=== PATIENT | female | born 1985 | race Caucasian/White ===

== ENCOUNTER 2023-05-19 15:40 | Emergency (ER) | payer OTHER, SELFPAY ==
--- NOTE | ~2023-05-19 | XR_ITS ---
EXAMINATION: XR chest 2V DATE: 05/19/2023 16:09 INDICATION: Right anterior chest pain. Cough, shortness of breath, and asthma. TECHNIQUE: Frontal and lateral views of the chest were obtained. COMPARISON: None. FINDINGS: There is no pneumonia, pleural effusion, or pneumothorax. The heart size is normal. There i s mild chronic height loss of multiple midthoracic vertebral bodies. IMPRESSION: 1. No acute cardiopulmonary disease. Reviewed, dictated and finalized at location E. GENCY MANAGEMENT SYSTEM DIRECTOR
[2023-05-19 15:44] VITALS: BP 148/82; PULSE 107; RESP 24; TEMP 37.6; O2SAT 99
--- NOTE | 2023-05-19 15:44 | ECG_ITS ---
Measurements Intervals [place] Rate: 97 P: 67 NC: 153 QRS: 28 QRSD: 81 T: 53 QT: 312 QTc: 398 Interpretive Statements SINUS RHYTHM BASELINE ARTIFACT- I, II, III, AVR, AVL, AVF, V1, V3-V6 NORMAL ECG NO PREVIOUS ECG AVAILABLE FOR COMPARISON Electronically Signed On 05-19-2023 16:19:49 INPATIENT SERVICES DIRECTOR by Ahmet Das D.O.
--- NOTE | 2023-05-19 15:55 | ED.URI ---
HPI - URI/Sore Throat General Chief Complaint: Upper Respiratory Infection Stated Complaint: chest pains/sob Time Seen by Provider: 05/19/23 15:55 Source: patient Mode of arrival: ambulatory Limitations: no limitations History of Present Illness HPI Narrative: 38 y/o female presented for c/o chest pain and shortness of breath, onset today. Endorses right chest pain radiating to back, occurs with coughing. Cough is occasionally productive. States she sat in [place] [facility] for most of today, had several tests, but left before she got the results because she thought a fight was breaking out in the waiting room. Related Data Home Medications Medication Instructions Recorded Confirmed Nexplanon 05/19/23 albuterol sulfate 90 mcg/actuation inhalation 05/19/23 aerosol inhaler amitriptyline 25 mg tablet mg 05/19/23 aripiprazole 5 mg tablet mg 05/19/23 atogepant 30 mg tablet (Qulipta) mg 05/19/23 atorvastatin 40 mg tablet mg 05/19/23 brivaracetam 100 mg tablet mg PO 05/19/23 (Briviact) buspirone 15 mg tablet mg 05/19/23 famotidine 20 mg tablet mg 05/19/23 hydroxyzine HCl 25 mg tablet mg 05/19/23 lacosamide 200 mg tablet mg 05/19/23 oxybutynin chloride 5 mg tablet mg 05/19/23 propranolol 80 mg tablet mg 05/19/23 sertraline 100 mg tablet mg 05/19/23 Allergies Allergy/AdvReac Type Severity Reaction Status Date / Time amoxicillin Allergy Mild Verified 09/05/09 15:47 latex Allergy Mild Verified 09/05/09 15:47 Review of Systems Review of Systems: CONSTITUTIONAL: Denies body aches, fever, chills, or sweats. EYES: Denies visual changes, redness, or discharge. ENT: Denies rhinorrhea, congestion, sore throat, or otalgia. CARDIOVASCULAR: Denies chest pain, palpitations, or edema. RESPIRATORY: Reports cough, sob, wheezing. GASTROINTESTINAL: Denies abdominal pain, nausea, vomiting, or diarrhea. GENITOURINARY: Denies dysuria or hematuria. SKIN: Denies rash, itching, or wounds. MUSCULOSKELETAL: Denies back pain, joint pain, or myalgia. NEUROLOGIC: Denies headache, numbness, tingling, or weakness. PSYCH: Denies depression or anxiety. All systems reviewed & are unremarkable except as noted in HPI and below PMFSH Comments At time of signature, I have reviewed and agree with nursing past medical, surgical, social and family history unless otherwise noted. Please see nursing chart for further information. There is no relevant family history pertinent to the presenting complaint Exam Narrative: GENERAL: Well-appearing, in no acute distress. EYES: EOMI. No redness or drainage. Conjunctivae normal. ENT: Mucous membranes pink and moist. No rhinorrhea. Throat normal. Uvula midline. CHEST: No respiratory distress. Audible wheezing with inhalation. Lungs diminished with scattered wheezing. Speaks full sentences. HEART: Regular rate and rhythm. No murmur appreciated. ABDOMEN: Soft, nontender, nondistended, normal active bowel sounds. EXTREMITIES: Normal range of motion. No edema. SKIN: Warm, dry, no rash. Capillary refill normal. Normal skin turgor. NEURO: Alert and oriented x3. Gait steady. PSYCH: Normal affect. Course Course Emergency Course: Patient is aware of diagnosis, understands and agrees to treatment plan. Anticipatory guidance given. Patient agrees to follow-up as directed and is aware of reasons to seek care at the emergency department. Portions of this record may have been created with voice recognition software Level of Care: Express Care Visit Vital Signs Vital signs: Vital Signs Temperature 99.6 F 05/19/23 15:44 Pulse Rate 107 H 05/19/23 15:44 Respiratory Rate 24 H 05/19/23 15:44 Blood Pressure 148/82 H 05/19/23 15:44 Pulse Oximetry 99 05/19/23 15:44 Oxygen Delivery Room Air 05/19/23 15:44 Temperature 99.6 F 05/19/23 15:44 Pulse Rate 107 H 05/19/23 15:44 Respiratory Rate 24 H 05/19/23 15:44 Blood Pressure 148/82 H 05/19/23 15:44 Pulse Oximetry 99
[2023-05-19] MEDS: methylPREDNISolone SOD SUCC 125 MG VIAL IM (16:23)
[2023-05-19] MEDS: ALBUTEROL SULFATE NEB 2.5 MG/3 ML INH INHALATION (16:23)
== END 2023-05-19 17:12 | disposition home or self-care (01) ==
PROVIDERS: Emergency Provider Nurse Practitioner Family; PCP Internal Medicine
DX: J40 Bronchitis, not specified as acute or chronic (principal); Z20.822 Contact with and (suspected) exposure to COVID-19; G40.909 Epilepsy, unspecified, not intractable, without status epilepticus; E78.00 Pure hypercholesterolemia, unspecified; I10 Essential (primary) hypertension; J45.909 Unspecified asthma, uncomplicated; K21.9 Gastro-esophageal reflux disease without esophagitis
CPT/HCPCS: 71046; 87426; 87804; 93005; 94640; 96372; 99213; G0463; J2930